=== PATIENT | male | born 1945 | race African-American/Black ===

== ENCOUNTER 2017-11-12 15:20 | Inpatient (IN) | payer OTHER ==
[2017-11-12 16:56] VITALS: BMI 52.5
[2017-11-12] MEDS ORDERED: ACETIC ACID 0.25% IRRIG IRR SCH (17:00)
[2017-11-12 17:10] LABS: Absolute Lymphocytes (CBC) 1.1 K/uL (0.7-4.9); Absolute Monocytes 0.6 K/uL (0.1-1.3); Absolute Neutrophil 5.8 K/uL (1.8-8.0); Basophils % 0.7 % (0-1.3); Eosinophils % 3.6 % (0-4.4); Hematocrit 39.5 % (39.6-49.0); Lymphocytes % 13.4 % (15.3-44.8); MCV 79.7 fL (80-100); MPV 8.4 fL (7.6-11.3); Monocytes % 8.1 % (3.3-12.3); Potassium 4.3 mmol/L (3.5-5.1); RBC Red Blood Cell Count 4.95 M/uL (4.33-5.43)
[2017-11-12] MEDS: Meropenem 1,000 MG in NA CHLORIDE 0.9% 100 ML IV SCH (17:51)
[2017-11-12] MEDS: ENOXAPARIN 30 MG/0.3 ML SQ SCH (17:51)
[2017-11-13 00:09] LABS: Urine Appearance CLEAR; Urine Bilirubin NEGATIVE (NEG); Urine Blood NEGATIVE (NEG); Urine Color YELLOW; Urine Glucose NEGATIVE (NEG); Urine Protein NEGATIVE (NEG); Urine pH 7.5 (5.0-7.0)
[2017-11-13 00:10] LABS: Urine Microscopic Reflex NO UMIC
[2017-11-13] MEDS: Meropenem 1,000 MG in NA CHLORIDE 0.9% 100 ML IV SCH ×3 (00:54→17:08)
[2017-11-13] MEDS: ACETIC ACID 0.25% IRRIG IRR SCH (08:54)
[2017-11-13] MEDS: ENOXAPARIN 30 MG/0.3 ML SQ SCH (08:55)
[2017-11-13] MEDS: BRIMONIDINE 0.15% OPTH SCH (21:00)
[2017-11-13] MEDS: ACETAMINOPHEN 325 MG TABLET PO SCH (21:00)
[2017-11-13] MEDS: LATANOPROST EACH EYE SCH (21:00)
[2017-11-13] MEDS: FUROSEMIDE 40 MG TABLET PO SCH (21:19)
[2017-11-13] MEDS: ATORVASTATIN 20 MG TAB PO SCH (21:20)
[2017-11-13] MEDS: DOCUSATE NA 100 MG CAP PO SCH (21:20)
[2017-11-13] MEDS: ASCORBIC ACID 500 MG TABLET PO SCH (21:21)
[2017-11-13] MEDS: METOPROLOL TAR 25 MG TAB PO SCH (21:21)
[2017-11-14] MEDS: Meropenem 1,000 MG in NA CHLORIDE 0.9% 100 ML IV SCH ×3 (02:12→18:23)
[2017-11-14] MEDS: DOCUSATE NA 100 MG CAP PO SCH ×2 (08:28→21:25)
[2017-11-14] MEDS: ENOXAPARIN 30 MG/0.3 ML SQ SCH (08:28)
[2017-11-14] MEDS: METOPROLOL TAR 25 MG TAB PO SCH ×2 (08:28→21:24)
[2017-11-14] MEDS: POTASSIUM CL SA 10 MEQ TAB PO SCH (08:28)
[2017-11-14] MEDS: MONTELUKAST 10 MG TAB PO SCH (08:29)
[2017-11-14] MEDS: ASPIRIN 81 MG CHEWABLE TABLET PO SCH (08:29)
[2017-11-14] MEDS: FUROSEMIDE 40 MG TABLET PO SCH ×2 (08:29→21:23)
[2017-11-14] MEDS: ASCORBIC ACID 500 MG TABLET PO SCH ×2 (08:29→21:23)
[2017-11-14] MEDS: ACETIC ACID 0.25% IRRIG IRR SCH (08:34)
[2017-11-14] MEDS: ACETAMINOPHEN 325 MG TABLET PO SCH ×2 (09:25→21:24)
--- NOTE | 2017-11-14 10:08 | RAD REPORT ---
EXAM DESCRIPTION: RAD - Chest Single View - 11/14/2017 9:58 am CLINICAL HISTORY: Dyspnea, COPD and CHF history COMPARISON: June 2015 TECHNIQUE: AP portable chest image was obtained [id number] hours . FINDINGS: Lung volumes are relatively low. Left base assessment is limited. Cardiomegaly is present with prominent vasculature. Pulmonary arteries and hilar regions are prominent, not clearly different from 2016. Trachea is midline. No pneumothorax or large pleural effusion. No gross bony abnormality seen. No acute aortic findings suspected. IMPRESSION: Mild CHF/volume overload pattern is present. Left base assessment is limited. A small infiltrate/effusion cannot be excluded.
[2017-11-14] MEDS: BRIMONIDINE 0.15% OPTH SCH ×2 (12:16→21:25)
[2017-11-14] MEDS: ATORVASTATIN 20 MG TAB PO SCH (21:23)
[2017-11-14] MEDS: TIMOLOL 0.5% EYE DROPS OPTH SCH (21:25)
[2017-11-14] MEDS: LATANOPROST EACH EYE SCH (21:40)
[2017-11-15] MEDS: Meropenem 1,000 MG in NA CHLORIDE 0.9% 100 ML IV SCH ×3 (00:49→17:00)
[2017-11-15] MEDS: ENOXAPARIN 30 MG/0.3 ML SQ SCH (09:16)
[2017-11-15] MEDS: POTASSIUM CL SA 10 MEQ TAB PO SCH (09:16)
[2017-11-15] MEDS: METOPROLOL TAR 25 MG TAB PO SCH ×2 (09:16→22:47)
[2017-11-15] MEDS: DOCUSATE NA 100 MG CAP PO SCH ×2 (09:16→22:54)
[2017-11-15] MEDS: MONTELUKAST 10 MG TAB PO SCH (09:16)
[2017-11-15] MEDS: ASCORBIC ACID 500 MG TABLET PO SCH ×2 (09:17→22:54)
[2017-11-15] MEDS: FUROSEMIDE 40 MG TABLET PO SCH ×2 (09:17→22:54)
[2017-11-15] MEDS: ASPIRIN 81 MG CHEWABLE TABLET PO SCH (09:18)
[2017-11-15] MEDS: ACETAMINOPHEN 325 MG TABLET PO SCH ×2 (09:24→22:58)
[2017-11-15] MEDS: BRIMONIDINE 0.15% OPTH SCH ×3 (09:25→23:04)
[2017-11-15] MEDS: TIMOLOL 0.5% EYE DROPS OPTH SCH ×2 (09:25→22:59)
[2017-11-15] MEDS: ACETIC ACID 0.25% IRRIG IRR SCH (16:12)
[2017-11-15] MEDS ORDERED: ONDANSETRON 4 MG/2 ML VIAL IV PRN (18:08)
--- NOTE | 2017-11-15 18:36 | HP ---
Date of Admission: 11/12/2017 Entrance Complaint: Nonhealing stasis ulcer of the left ankle, history of lymphedema. History Of Present Illness: The patient has had significant problems with the above outlined symptom s. He has been treated for a number of months in various wound centers and in fact has been in LTACs for treatment of nonhealing areas of his leg in the recent past. As of late, he has been on various antibiotic combinations, various applications of creams and ointments, compression of the leg and co ntinues to show nonhealing of the rather large stasis ulcer on the left lower ankle medial aspect. M ultiple cultures have shown some sensitivity to oral medications, however, as of late, they have been parenteral. It was, therefore, decided to admit him for more intensive care and perhaps refer him t o LTAC for continuous treatment depending on how his response. During his treatment at the wound [facility], he has also undergone vascular studies, which have been basically within normal limits and has h ad various applications of artificial skin, none of which have helped. The latter was utilized when there was a negative culture, the last one 3 or 4 months ago. Past Medical History: As mentioned above, the patient has a long history of lymphedema, ulcerations, number of years ago he required a graft on the left leg which was apparently successful. Since that time, he is continually compressing his leg until it leaves ulcerations. Interesting enough, he had 2 much smaller ulcers of the left lower leg in the ankle area, 1 on the lateral aspect, 1 more poste riorly than the major ulcer and these have healed. However, he continues to have significant lymphed jose luis problem despite rather aggressive compression. Significant past history also includes apparently severe episode of CHF and this necessitated hospitalization in [place] after by seeing a cardiologis t in [place] that was over 2 years ago. Lately, his primary care doctor has seen him and continued his treatment for hypertension and hyperlipidemia. Social History: Nonsmoker, nondrinker. Family History: Noncontributory. His significant history has been obtained through his brother rather than the patient and is a poor h istorian at best and in fact, he is rather on the thin side, so as far as the obesity is concerned, i t seems to be related to a particular patient and is significant. Physical Examination: General: The patient is a significantly obese elderly male. Vital Signs: Stable. Head and Neck: Normocephalic. Pupils equal and reactive to accommodation. Fundi negative. Trachea midline. Thyroid not palpable. ENT: Negative. Chest: Clear to P and A. Cardiovascular: PMI in midclavicular line. Heart: Sounds normal. Peripheral pulses present and equal bilaterally. Abdomen: Obese. No organomegaly. Bowel sounds present. Extremities: +2 pitting edema on the right lower leg. Upper extremities normal. Left leg shows mar ked lymphedema, large ulceration, stasis venous on the medial aspect of the ankle area and as mentioned, 2 small areas, which have basically healed, 1 lateral and 1 more posterior. Rectal: Deferred. Pelvic: Deferred. Impression: Nonhealing venous stasis ulcer of the left lower leg; marked lymphedema of left lower le g; morbid obesity; hypertension, controlled; and hyperlipidemia. Plan: The patient will be admitted and placed on IV meropenem. Continue with topical treatments, co mpression, and depending on the results of a fresh culture and response, perhaps an LTAC would be ind icated. HR/MODL Voice ID: [id number]
[2017-11-15] MEDS ORDERED: LIDOCAINE 1% MPF 5 ML VIAL ONE (21:18)
--- NOTE | 2017-11-15 21:45 | PN ---
Date of Progress Note: 11/15/2017 Subjective: The patient's ulcer looks considerably better. Little bit of granulation tissue is now forming along the edges superiorly and even more medially and laterally, which has not been present p glor to he is being admitted; however, his culture was negative when taken just prior to admission an d a week before showed 2 bacteria and as a result of this he was placed on Bactrim and Levaquin, whic h he has been on in the past with poor results as far as the culture and healing is concerned; chelsie menon, at this time, he has negative culture. Once he was placed on the Merrem, as mentioned tissue impr chula considerably. He is awaiting clearance for a bed, I am not sure which place he is trying to get into; however, the alternative if he turndown, would either be a PICC line and the Merrem at home [facility] or switching back to oral medication. The decision as far as transfer and acceptance at an LTAC probably be made by tomorrow. HR/LEIGHTON Voice ID: [id number] Report ID: [id number]
[2017-11-15] MEDS ORDERED: CEFTRIAXONE 1000 MG/VIAL IM ONE (22:38)
[2017-11-15] MEDS: ATORVASTATIN 20 MG TAB PO SCH (22:54)
[2017-11-15] MEDS: LATANOPROST EACH EYE SCH (23:03)
[2017-11-16 03:55] LABS: Absolute Monocytes 1.7 K/uL (0.1-1.3); Absolute Neutrophil 7.9 K/uL (1.8-8.0); Basophils % 0.5 % (0-1.3); Eosinophils % 1.4 % (0-4.4); Hematocrit 39.2 % (39.6-49.0); Lymphocytes % 8.9 % (15.3-44.8); MCH 25.8 pg (27.0-35.0); MPV 8.4 fL (7.6-11.3); RBC Red Blood Cell Count 4.83 M/uL (4.33-5.43)
[2017-11-16 04:52] LABS: Blood Morphology Comment NOT SEEN (NOT SEEN); Platelet Estimate ADEQ; Urine White Blood Cell Casts OK
[2017-11-16 05:11] LABS: ALT/SGPT 14 U/L (12-78); AST/SGOT 26 U/L (15-37); Albumin 2.7 g/dL (3.4-5.0); Alkaline Phosphatase 38 U/L (45-117); BUN Blood Urea Nitrogen 13 mg/dL (7-18); Bicarbonate 34 mmol/L (21-32); Bilirubin Total 0.3 mg/dL (0.2-1.0); Glucose Level 109 mg/dL (74-106); Potassium 4.5 mmol/L (3.5-5.1); Protein, Total 8.6 g/dL (6.4-8.2); Sodium Level 146 mmol/L (136-145)
[2017-11-16] MEDS: ENOXAPARIN 30 MG/0.3 ML SQ SCH (07:47)
[2017-11-16] MEDS: POTASSIUM CL SA 10 MEQ TAB PO SCH (07:47)
[2017-11-16] MEDS: ASPIRIN 81 MG CHEWABLE TABLET PO SCH (07:48)
[2017-11-16] MEDS: FUROSEMIDE 40 MG TABLET PO SCH (07:48)
[2017-11-16] MEDS: DOCUSATE NA 100 MG CAP PO SCH (07:48)
[2017-11-16] MEDS: ACETAMINOPHEN 325 MG TABLET PO SCH (07:48)
[2017-11-16] MEDS: ASCORBIC ACID 500 MG TABLET PO SCH (07:49)
[2017-11-16] MEDS: MONTELUKAST 10 MG TAB PO SCH (07:50)
[2017-11-16] MEDS: TIMOLOL 0.5% EYE DROPS OPTH SCH (07:51)
[2017-11-16] MEDS: BRIMONIDINE 0.15% OPTH SCH (07:51)
[2017-11-16] MEDS: METOPROLOL TAR 25 MG TAB PO SCH (07:53)
[2017-11-16] MEDS ORDERED: CEFTRIAXONE 1000 MG/VIAL IM ONE (09:00)
[2017-11-16] MEDS ORDERED: LIDOCAINE 1% 20 ML MDV IJ SCH (10:00)
[2017-11-16] MEDS ORDERED: LIDOCAINE 1% MPF 5 ML VIAL IJ SCH (10:00)
[2017-11-16 11:46] VITALS: O2SAT 88
[2017-11-16] MEDS: ACETIC ACID 0.25% IRRIG IRR SCH (13:25)
[2017-11-16 14:14] VITALS: BP 150/80; TEMP 97
== END 2017-11-16 16:33 | disposition home health service (06) | DRG 300 ==
LOC: 4TH 15:37 → 2ND 11-14 17:12
PROVIDERS: ADMIT Family Medicine; ATTEND Family Medicine
DX: I87.2 Venous insufficiency (chronic) (peripheral) (principal); L97.329 Non-pressure chronic ulcer of left ankle with unspecified severity; Z68.43 Body mass index [BMI] 50.0-59.9, adult; I89.0 Lymphedema, not elsewhere classified; E78.5 Hyperlipidemia, unspecified; E66.01 Morbid (severe) obesity due to excess calories; I10 Essential (primary) hypertension
CPT/HCPCS: 36415; 71045; 80048; 80053; 81003; 85025; 87070; 87075; 87077; 87186; 87205; 99215; J1650

== ENCOUNTER 2021-08-15 07:30 | Day surgery (SDC) | payer OTHER ==
[2021-08-12 12:02] LABS: Absolute Lymphocytes (CBC) 1.3 K/uL (0.7-4.9); Hematocrit 37.5 % (39.6-49.0); Lymphocytes % 25.6 % (15.3-44.8); MPV 8.1 fL (7.6-11.3); RBC Red Blood Cell Count 4.94 M/uL (4.33-5.43)
[2021-08-12 12:15] LABS: Potassium 3.6 mmol/L (3.5-5.1)
[2021-08-12 12:20] LABS: White Blood Cell Scan OK (OK)
[2021-08-12 12:21] LABS: Blood Morphology Comment NOT SEEN (NOT SEEN); Platelet Estimate ADEQ
--- NOTE | 2021-08-12 12:50 | RAD REPORT ---
EXAM DESCRIPTION: RAD - Chest Pa And Lat (2 Views) - 08/12/2021 12:28 pm CLINICAL HISTORY: pre op pending scalp mass removal COMPARISON: Portable chest 11/14/2017, two view chest 06/15/2015 TECHNIQUE: Frontal and lateral views of the chest were obtained. FINDINGS: The lungs are clear of a peripheral mass or consolidation. Interstitial markings are mildl y prominent but not clearly different or progressive from remote imaging. Pulmonary artery enlargement is present similar to prior imaging. Pulmonary artery hypertension canno t be excluded on this examination. Pulmonary artery size has not changed back to 2016. Heart size is upper normal. Failure or volume overload related vascular congestion not suspected. No pleural effusion or pneumothorax seen. No acute bony finding noted. No aortic abnormality. IMPRESSION: No acute cardiopulmonary finding seen. Chest is similar to prior imaging. Pulmonary artery enlargement is seen. Pulmonary artery hypertension cannot be excluded. The chest fin dings are stable back to 2016.
[2021-08-15] MEDS ORDERED: NA CHLORIDE 0.9% 1,000 ML ONE (07:40)
[2021-08-15] MEDS ORDERED: CEFAZOLIN SODIUM 1 GM/VIAL ONE (07:40)
[2021-08-15] MEDS ORDERED: NA CHLORIDE 0.9% 50 ML ONE (07:41)
[2021-08-15] MEDS ORDERED: MIDAZOLAM HCL 2 MG/2 ML INJ ONE (08:12)
[2021-08-15] MEDS ORDERED: FENTANYL CITR 100 MCG/2 ML ONE ×2 (08:12→09:14)
[2021-08-15] MEDS ORDERED: ONDANSETRON 4 MG/2 ML VIAL ONE (08:13)
[2021-08-15] MEDS ORDERED: ROCURONIUM 50 MG/5 ML VIAL IV ONE (08:13)
[2021-08-15] MEDS ORDERED: ETOMIDATE 20 MG/10 ML VIAL IV ONE (08:14)
--- NOTE | 2021-08-15 08:57 | P.BOP ---
Preoperative diagnosis: Posterior tender scalp mass Postoperative diagnosis: same Primary procedure: Excisional bx of Posterior tender scalp mass Redevelopment Specialist: Analy Rosales (Wendy) Specimen: mass Anesthesia: General Complications: None Implants: none Transferred to: Recovery Room
[2021-08-15] MEDS: BUPIVACAINE 0.5% PF 10 ML VIAL ONE ×2 (09:10→09:24)
[2021-08-15] MEDS ORDERED: NEOSTIGMINE 1 MG/ML -5 ML ONE (09:48)
[2021-08-15] MEDS ORDERED: GLYCOPYRROLATE 0.2 MG/ML SYR ONE (09:48)
[2021-08-15 12:01] VITALS: BP 135/77; TEMP 97.8; O2SAT 98
--- NOTE | 2021-08-15 12:12 | OP ---
Date of Procedure: 08/15/2021 Surgeon: Dino Pedraza MD Pyrotechnist: Analy Angelo. Preoperative Diagnosis: Posterior tender scalp mass. Postoperative Diagnosis: Posterior tender scalp mass. Procedure: Excisional biopsy of large posterior tender scalp mass. See H and P for size. Specimen: Mass. Anesthesia: General plus local. Estimated Blood Loss: Less than 10 cc. Implants: None. Fluids: No blood. Indication: This is the case of a patient, who comes to us with a tender scalp mass. Benefits, alte rnatives, and risks of excision fully explained which include, but not limited to infection, bleeding , damage to adjacent structures, anesthesia complication, nonhealing wound, [place], and even . He a lso understands this may not relieve any symptoms. He might need more than one surgical intervention . He understands it may be infected and may have to require wound care. He understood, signed a con sent. The area of concern was marked by me and the patient in the holding room. Procedure In Detail: The patient was brought to the operating room, placed in supine position. Anes thesia was done without complication. The patient was placed in prone position with proper protectio n. The scalp area was prepped and draped in the usual sterile fashion. A wedge incision was made in the skin after injecting local anesthetic all the way down to muscle. The mass was completely excis ed. We found a fatty tumor. We found a large fatty tumor and also deep into that area, we also saw what is an infected, what it looked like a sebaceous cyst. We are going to leave the pathologist dec chuck on the final pathology. We have some purulent discharge over that area. So, we proceeded then t o leave the area to close by secondary intention with frequent wound care. We injected local anesthe tic and obtained hemostasis before that. The patient tolerated the procedure well. The patient was sent to recovery in stable condition. HM/MODL Voice ID: [id number] Report ID: [id number]
--- NOTE | 2021-08-15 12:14 | DS ---
Diagnosis: Posterior scalp mass. Condition: Stable. Disposition: Home. Activity: As tolerated. No heavy lifting. Plan: [facility] 2 [facility]. Call for appointment. Wet-to-dry dressing, normal saline daily after that. Medications: Reviewed with the patient. KATIE Voice ID: [id number] Report ID: [id number]
== END 2021-08-15 11:53 | disposition home or self-care (01) ==
LOC: OR 07:30
PROVIDERS: ATTEND Surgery
PROC: 0HB0XZZ Excision of Scalp Skin, External Approach (ICD-10-PCS; principal; 2021-08-15 08:30)
DX: L72.0 Epidermal cyst (principal); Z20.822 Contact with and (suspected) exposure to COVID-19; I51.9 Heart disease, unspecified; I10 Essential (primary) hypertension; E66.9 Obesity, unspecified; E78.5 Hyperlipidemia, unspecified; E78.00 Pure hypercholesterolemia, unspecified
CPT/HCPCS: 87070; 85025; 80048; 36415; 87205 ×2; 82947 ×2; 88304; 87075; 71046; 11426; U0003; J2250; J3010 ×2; J2710; J7030; J2405; J0690; 88305